=== PATIENT | female | born 1965 | race Caucasian/White ===

== ENCOUNTER 2017-03-20 00:08 | Emergency (ER) | payer MEDICAID ==
--- NOTE | 2017-03-20 00:55 | EDM.PDOC ---
ED HPI GENERAL MEDICAL PROBLEM - General Chief Complaint: General Stated Complaint: LT ANKLE PAIN Time Seen by Provider: 03/20/17 00:16 Source of Information: Reports: Patient History Limitations: Reports: No Limitations - History of Present Illness INITIAL COMMENTS - FREE TEXT/NARRATIVE: 52 y.o.w.f came to the ed with her friend due to a rash left lower leg fro 2-3 days and left leg swelling. No SOB, no other acute medical issues. denies bug bites. Onset: Unknown/Unsure Onset Date: 03/17/17 Onset Time: 07:00 Duration: Day(s):, Getting Worse Location: Reports: Lower Extremity, Left Quality: Reports: Burning Severity: Mild Improves with: Reports: Medication Worsens with: Reports: Movement Context: Reports: Other (unknown) - Related Data Allergies Allergy/AdvReac Type Severity Reaction Status Date / Time No Known Allergies Allergy Verified 03/20/17 00:16 Home Meds: Home Meds Albuterol Sulfate [Albuterol Sulfate HFA] 8.5 gm IH ASDIRECTED PRN 11/14/14 [ History] Amitriptyline HCl 10 mg PO BEDTIME 11/14/14 [History] Baclofen 20 mg PO BEDTIME 11/14/14 [History] Citalopram Hydrobromide [Citalopram HBr] 20 mg PO DAILY 11/14/14 [History] Polyethylene Glycol 3350 [MiraLAX] 238 gm PO DAILY PRN 11/14/14 [History] Topiramate [Topamax] 50 mg PO BID 11/14/14 [History] Levothyroxine 125 mcg PO DAILY #30 tablet 01/21/15 [Rx] Hydrocodone/Acetaminophen [Hydrocodon-Acetaminophen 5-325] 1 each PO Q6HR #16 tablet 07/26/16 [Rx] QUEtiapine [SEROquel XR] 50 mg PO BEDTIME 07/26/16 [History] Cephalexin [Keflex] 500 mg PO Q6HR #40 cap 03/20/17 [Rx] Past Medical History HEENT History: Reports: Other (See Below) Other HEENT History: TONSILITIS Gastrointestinal History: Reports: [employer] History: Reports: Other (See Below) Other OB/BYN History: HYSTERECTOMY Musculoskeletal History: Reports: Back Pain, Chronic Other Musculoskeletal History: History of back surgery Neurological History: Reports: Migraines Psychiatric History: Reports: Depression Endocrine/Metabolic History: Reports: Hypothyroidism - Past Surgical History GI Surgical History: Reports: Other (See Below) Dermatological Surgical History: Reports: Other (See Below) Social & Family History - Family History Family Medical History: Noncontributory - Tobacco Use Smoking Status *Q: Current Every Day Smoker Years of Tobacco use: 40 Packs/Tins Daily: 0.5 Used Tobacco, but Quit: No Second Hand Smoke Exposure: No - Caffeine Use Caffeine Use: Reports: Coffee, Tea - Alcohol Use Days Per Week of Alcohol Use: 0 - Recreational Drug Use Recreational Drug Use: Yes Drug Use in Last 12 Months: Yes Recreational Drug Type: Reports: Marijuana/Hashish Other Recreational Drug Type: quit methamphetamines ~ 1.5 months ago ED ROS GENERAL - Review of Systems Review Of Systems: See Below Constitutional: Reports: No Symptoms HEENT: Reports: No Symptoms Respiratory: Reports: No Symptoms Cardiovascular: Reports: No Symptoms Endocrine: Reports: No Symptoms GI/Abdominal: Reports: No Symptoms : Reports: No Symptoms Musculoskeletal: Reports: No Symptoms Skin: Reports: Wound (left lower medial extremity) Neurological: Reports: No Symptoms Psychiatric: Reports: No Symptoms Hematologic/Lymphatic: Reports: No Symptoms Immunologic: Reports: No Symptoms ED EXAM, GENERAL - Physical Exam Exam: See Below Exam Limited By: No Limitations General Appearance: Alert, WD/WN, No Apparent Distress Eye Exam: Bilateral Eye: Normal Inspection Ears: Normal External Exam Ear Exam: Bilateral Ear: Auricle Normal Nose: Normal Inspection, Normal Mucosa Throat/Mouth: Normal Inspection Head: Atraumatic, Normocephalic Neck: Normal Inspection, Supple, Non-Tender, Full Range of Motion Respiratory/Chest: No Respiratory Distress, Lungs Clear, Normal Breath Sounds Cardiovascular: Normal Peripheral Pulses, Regular Rate, Rhythm, No Murmur GI/Abdominal: Normal Bowel Sounds, Soft, Non-Tender, No Organomegaly (Female) Exam: Deferred Rectal (Female) Exam: Deferred Back Exam: Normal Inspection, Full Range of Motion Extremities: Other (cellulitis left lower extremity, non pitting legedema) Neurological: Alert, Oriented, CN II-XII Intact, Normal Cognition Psychiatric: Normal Affect, Normal Mood Skin Exam: Rash (left lower extremity) Lymphatic: No Adenopathy Course - Vital Signs Text/Narrative:: 52 y.o.w.f came to the ed with her friend due to a rash left lower leg fro 2-3 days and left leg swelling. No SOB, no other acute medical issues. no H/O MRSA PE: No pitting edema left leg, cellulitis left lower leg Imaging: US Doppler left leg neg for DVT labs: WBC nl Impression: Cellulitis left lower leg Tx: Abx Reexam: improved Plan: D/C with instructions Last Recorded V/S: Last Vital Signs Temp 36.7 C 03/20/17 04:15 Pulse 80 03/20/17 04:15 Resp 16 03/20/17 04:15 BP 104/68 03/20/17 04:15 Pulse Ox 98 03/20/17 04:15 - Orders/Labs/Meds Orders: Active Orders 24 hr Category Date Time Status VL Duplex Lwr Ext Veins Ltd Lt [US] Stat Exams 03/20/17 01:17 Taken CULTURE BLOOD [BC] Urgent Lab 03/20/17 00:50 Received CULTURE BLOOD [BC] Urgent Lab 03/20/17 00:55 Received Blood Culture x2 Reflex Set [OM.PC] Urgent Oth 03/20/17 00:49 Ordered Labs: Laboratory Tests 03/20/17 03/20/17 03/20/17 Range/Units 00:50 00:50 00:50 WBC 7.5 (4.5-12.0) X10-3/uL RBC 3.81 (3.23-5.20) x10(6)uL Hgb 11.0 L (11.5-15.5) g/dL Hct 33.6 (30.0-51.3) % MCV 88.2 (80-96) fL MCH 29.0 (27.7-33.6) pg MCHC 32.8 (32.2-35.4) g/dL RDW 14.1 (11.5-15.5) % Plt Count 299 (125-369) X10(3)uL MPV 8.1 (7.4-10.4) fL Neut % (Auto) 52.6 (46-82) % Lymph % (Auto) 32.9 (13-37) % [place] % (Auto) 7.3 (4-12) % Eos % (Auto) 7 H (1.0-5.0) % Baso % (Auto) 1 (0-2) % Neut # (Auto) 3.9 (1.6-8.3) # Lymph # (Auto) 2.5 (0.6-5.0) # [place] # (Auto) 0.5 (0.0-1.3) # Eos # (Auto) 0.5 (0.0-0.8) # Baso # (Auto) 0.1 (0.0-0.2) # Sodium 136 (135-145) mmol/L Potassium 3.9 (3.5-5.3) mmol/L Chloride 106 (100-110) mmol/L Carbon Dioxide 23 (23-29) mmol/L BUN 16 (5-20) mg/dL Creatinine 1.4 H (0.6-1.3) mg/dL Est Cr Clr Drug Dosing TNP Estimated GFR (MDRD) 39 L (>60) BUN/Creatinine Ratio 11.4 (9-20) Glucose 102 (80-116) mg/dL Lactic Acid 0.7 (0.5-2.2) mmol/L Calcium 8.4 L (8.6-10.2) mg/dL Meds: Medications Discontinued Medications Generic Name Dose Route Start Last Admin Trade Name Freq PRN Reason Stop Dose Admin Cephalexin 500 mg 03/20/17 02:49 03/20/17 03:06 Keflex PO 03/20/17 02:50 500 mg ONETIME ONE Administration Departure - Departure Time of Disposition: 03:42 Disposition: Home, Self-Care 01 Condition: Good Clinical Impression: Cellulitis of left lower leg - Discharge Information Prescriptions: Cephalexin [Keflex] 500 mg PO Q6HR #40 cap Referrals: Richard Garcia MD [Primary Care Provider] - Forms: ED Department Discharge Additional Instructions: Please keep wound dry and clean, please take keflex as recommended, please f/u, please come back to the ED if your symptoms get acutely worse. - My Orders Last 24 Hours: My Active Orders 03/20/17 00:49 Blood Culture x2 Reflex Set [OM.PC] Urgent 03/20/17 00:50 CULTURE BLOOD [BC] Urgent 03/20/17 00:55 CULTURE BLOOD [BC] Urgent 03/20/17 01:17 VL Duplex Lwr Ext Veins Ltd Lt [US] Stat - Assessment/Plan Last 24 Hours: My Active Orders 03/20/17 00:49 Blood Culture x2 Reflex Set [OM.PC] Urgent 03/20/17 00:50 CULTURE BLOOD [BC] Urgent 03/20/17 00:55 CULTURE BLOOD [BC] Urgent 03/20/17 01:17 VL Duplex Lwr Ext Veins Ltd Lt [US] Stat
[2017-03-20] MEDS ORDERED: Cephalexin 500 MG Cap PO ONE (02:49)
[2017-03-20 07:06] VITALS: BP 104/68
--- NOTE | 2017-03-20 11:15 | US ---
INDICATION: Swelling of left leg, cellulitis, question DVT. DUPLEX ULTRASOUND, LEFT LOWER EXTREMITY VEINS: Utilizing 2-D real time, duplex Doppler spectral analysis, and color flow imaging, examination of the left lower extremity veins revealed no evidence of deep venous thrombosis or obstruction. Compression views showed no abnormal lack of compression to suggest thrombosis. Valvular competence was not evaluated. IMPRESSION: 1. Duplex ultrasound, left lower extremity veins, shows no evidence of deep venous thrombosis. 2. Valvular competence was not evaluated. MTDD
== END 2017-03-20 04:20 | disposition home or self-care (01) ==
LOC: FB.ED 00:08
DX: L03.116 Cellulitis of left lower limb (principal); G43.909 Migraine, unspecified, not intractable, without status migrainosus; F32.9 Major depressive disorder, single episode, unspecified; E03.9 Hypothyroidism, unspecified; F17.210 Nicotine dependence, cigarettes, uncomplicated; Z79.899 Other long term (current) drug therapy; Z90.710 Acquired absence of both cervix and uterus
CPT/HCPCS: 36415; 80048; 83605; 85025; 87040; 93971; 99284; A9270

== ENCOUNTER 2017-05-04 10:09 | Emergency (ER) | payer MEDICAID ==
[2017-05-04] MEDS ORDERED: Sodium Chloride 0.9% 1,000 ML IV ONE (10:38)
[2017-05-04] MEDS ORDERED: Metoclopramide 10 MG/2 ML SDV IVPUSH ONE (10:39)
[2017-05-04] MEDS ORDERED: Ketorolac 30 MG/ML SDV IVPUSH ONE (10:44)
[2017-05-04] MEDS ORDERED: diphenhydrAMINE 50 MG/ML SDV IVPUSH ONE (10:46)
[2017-05-04 13:04] VITALS: BP 110/78
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
== END 2017-05-04 13:04 | disposition home or self-care (01) ==
LOC: FB.ED 10:09
DX: G43.909 Migraine, unspecified, not intractable, without status migrainosus (principal); E03.9 Hypothyroidism, unspecified; F43.29 Adjustment disorder with other symptoms; F32.9 Major depressive disorder, single episode, unspecified; Z95.1 Presence of aortocoronary bypass graft; Z98.51 Tubal ligation status; Z79.899 Other long term (current) drug therapy; Z98.890 Other specified postprocedural states
CPT/HCPCS: 36415; 80053; 81001; 85025; 96361; 96374; 96375; 99283; J1200; J1885; J2765; J7040

== ENCOUNTER 2019-05-21 20:20 | Emergency (ER) | payer MEDICAID ==
[2019-05-21 20:30] VITALS: BP 115/83
[2019-05-21] MEDS: diphenhydrAMINE 50 MG/ML SDV IM ONE (20:54)
[2019-05-21] MEDS: Metoclopramide 10 MG/2 ML SDV IM ONE (20:54)
[2019-05-21] MEDS: Ketorolac 60 MG/2 ML SDV IM ONE (20:54)
--- NOTE | 2019-05-21 20:56 | EDM.PDOC ---
ED HPI GENERAL MEDICAL PROBLEM - General Stated Complaint: MIGRAINES Time Seen by Provider: 05/21/19 20:52 Source of Information: Reports: Patient History Limitations: Reports: No Limitations - History of Present Illness INITIAL COMMENTS - FREE TEXT/NARRATIVE: Headache x 12hrs. Insidious onset,occipital,moderate. Characteristic of usual migraine headache. Tried Imitrex,Topiramate at home with no relief. No fever, visual disturbance or nausea/vomiting. Sarah has a h/o substance abuse, depression,anxiety.,fibromyalgia all poorly controlled. head Pain Score (Numeric/FACES): 10 - Related Data Allergies Allergy/AdvReac Type Severity Reaction Status Date / Time No Known Allergies Allergy Verified 05/04/17 10:34 Home Meds: Home Meds Albuterol Sulfate [Albuterol Sulfate HFA] 8.5 gm IH ASDIRECTED PRN 11/14/14 [ History] Amitriptyline HCl 10 mg PO BEDTIME PRN 11/14/14 [History] Baclofen 20 mg PO BEDTIME 11/14/14 [History] Citalopram Hydrobromide [Citalopram HBr] 20 mg PO DAILY 11/14/14 [History] Polyethylene Glycol 3350 [MiraLAX] 238 gm PO DAILY PRN 11/14/14 [History] Topiramate [Topamax] 50 mg PO BID 11/14/14 [History] Levothyroxine 125 mcg PO DAILY #30 tablet 01/21/15 [Rx] QUEtiapine [SEROquel XR] 50 mg PO BEDTIME 07/26/16 [History] Past Medical History HEENT History: Reports: Other (See Below) Other HEENT History: TONSILITIS Other Respiratory History: emphysema Gastrointestinal History: Reports: PUD TAILING HAND History: Reports: , Other (See Below) Other TAILING HAND History: HYSTERECTOMY Musculoskeletal History: Reports: Back Pain, Chronic Other Musculoskeletal History: History of back surgery Neurological History: Reports: Migraines Psychiatric History: Reports: Depression Endocrine/Metabolic History: Reports: Hypothyroidism - Past Surgical History GI Surgical History: Reports: Other (See Below) Dermatological Surgical History: Reports: Other (See Below) Social & Family History - Family History Family Medical History: Noncontributory - Caffeine Use Caffeine Use: Reports: Coffee, Energy Drinks, Soda, Tea ED ROS GENERAL - Review of Systems Review Of Systems: ROS reveals no pertinent complaints other than HPI. - Physical Exam Exam: See Below Exam Limited By: No Limitations General Appearance: Alert, Anxious Nose: Normal Inspection Throat/Mouth: Normal Lips Head Exam: Atraumatic, Normocephalic Neck: Normal Inspection Respiratory/Chest: No Respiratory Distress Neuro Exam (Abbreviated): Oriented, CN II-XII Intact, Normal Cognition Psychiatric: Anxious, Tearful Skin Exam: Warm Course - Vital Signs Last Recorded V/S: Last Vital Signs Temp 98.2 F 05/21/19 20:20 Pulse 88 05/21/19 20:20 Resp 18 05/21/19 20:20 BP 115/83 05/21/19 20:20 Pulse Ox 100 05/21/19 20:20 - Orders/Labs/Meds Meds: Medications Discontinued Medications Generic Name Dose Route Start Last Admin Trade Name Freq PRN Reason Stop Dose Admin Diphenhydramine HCl 50 mg 05/21/19 20:42 05/21/19 20:54 Benadryl IM 05/21/19 20:43 50 mg ONETIME ONE Administration Ketorolac Tromethamine 60 mg 05/21/19 20:42 05/21/19 20:54 Toradol IM 05/21/19 20:43 60 mg ONETIME ONE Administration Metoclopramide HCl 10 mg 05/21/19 20:42 05/21/19 20:54 Reglan IM 05/21/19 20:43 10 mg ONETIME ONE Administration Departure - Departure Time of Disposition: 20:56 Disposition: Home, Self-Care 01 Condition: Good Clinical Impression: Migraine Migraine Qualifiers: Migraine type: without aura Status migrainosus presence: without status migrainosus Intractability: not intractable Qualified Code(s): G43.009 - Migraine without aura, not intractable, without status migrainosus - Discharge Information Instructions: Migraine Headache, [id number] Referrals: PCP,None [Primary Care Provider] - Forms: ED Department Discharge Additional Instructions: follow up with your primary care as needed - Problem List & Annotations (1) Migraine SNOMED Code(s): 75872374 Code(s): G43.909 - MIGRAINE, UNSP, NOT INTRACTABLE, WITHOUT STATUS MIGRAINOSUS Status: Acute Qualifiers: Migraine type: without aura Status migrainosus presence: without status migrainosus Intractability: not intractable Qualified Code(s): G43.009 - Migraine without aura, not intractable, without status migrainosus - Problem List Review Problem List Initiated/Reviewed/Updated: Yes - Assessment/Plan Plan: Benadryl/Toradol/Reglan. DC home. Follow up PRN
== END 2019-05-21 21:14 | disposition home or self-care (01) ==
LOC: FB.ED 20:20
DX: G43.009 Migraine without aura, not intractable, without status migrainosus (principal); F32.9 Major depressive disorder, single episode, unspecified; E03.9 Hypothyroidism, unspecified; Z79.899 Other long term (current) drug therapy
CPT/HCPCS: 96372; 99283; J1200; J1885; J2765

== ENCOUNTER 2021-12-12 22:26 | Emergency (ER) | payer MEDICAID ==
[2021-12-12] MEDS ORDERED: Aspirin 81 MG Tab.Chew PO STA (22:47)
[2021-12-12 23:59] VITALS: BP 112/78; PULSE 60
== END 2021-12-12 23:55 | disposition home or self-care (01) ==
LOC: FB.ED 22:26
DX: R09.1 Pleurisy (principal); J44.9 Chronic obstructive pulmonary disease, unspecified; E03.9 Hypothyroidism, unspecified; Z79.899 Other long term (current) drug therapy; Z72.0 Tobacco use
CPT/HCPCS: 36415; 71045; 80053; 83880; 84484; 85025; 93005; 93010; 99282; 99285; A9270

== ENCOUNTER 2022-03-23 18:31 | Emergency (ER) | payer MEDICAID ==
[2022-03-23] MEDS ORDERED: traMADol 50 MG Tab PO ONE (18:32)
[2022-03-23] MEDS ORDERED: Ketorolac 30 MG/ML SDV IM ONE (19:06)
[2022-03-23] MEDS ORDERED: hydrOXYzine HCl 50 MG/ML SDV IM ONE (19:08)
[2022-03-23 20:53] VITALS: BP 122/68; PULSE 85
== END 2022-03-23 20:30 | disposition home or self-care (01) ==
LOC: FB.ED 18:31
DX: S43.402A Unspecified sprain of left shoulder joint, initial encounter (principal); J44.9 Chronic obstructive pulmonary disease, unspecified; F17.210 Nicotine dependence, cigarettes, uncomplicated; E03.9 Hypothyroidism, unspecified; Z79.899 Other long term (current) drug therapy
CPT/HCPCS: 93005; 96372; 99283; A9270; J1885; J3410

== ENCOUNTER 2024-08-27 17:50 | Emergency (ER) | payer MEDICAID, OTHER ==
[2024-08-27] MEDS: Amoxicillin/Clavulanate K 875-125 MG Tab PO ONE (18:11)
[2024-08-27 18:23] VITALS: BP 112/72; PULSE 89
== END 2024-08-27 19:11 | disposition home or self-care (01) ==
LOC: FB.ED 17:50
DX: S61.451A Open bite of right hand, initial encounter (principal); F17.210 Nicotine dependence, cigarettes, uncomplicated; E03.9 Hypothyroidism, unspecified; Z79.891 Long term (current) use of opiate analgesic; Z79.899 Other long term (current) drug therapy; W54.0XXA Bitten by dog, initial encounter
CPT/HCPCS: 99283; A9270-GY